=== PATIENT | male | born 1950 | race Caucasian/White ===

== ENCOUNTER 2020-11-16 16:46 | Emergency (ER) | payer MEDICARE, BC ==
[2020-11-16 17:01] VITALS: BP 167/78; PULSE 81
--- NOTE | 2020-11-16 17:15 | EDM.PDOC ---
ED HPI GENERAL MEDICAL PROBLEM - General Chief Complaint: Neurological Problem Stated Complaint: DIZZY, FALLING OVER TO ONE SIDE Time Seen by Provider: 11/16/20 17:05 Source of Information: Reports: Patient, Family History Limitations: Reports: No Limitations - History of Present Illness INITIAL COMMENTS - FREE TEXT/NARRATIVE: 70-year-old male who has had a problems with intermittent dizziness for the last few years, but in the last 2 months it has been more persistent mixed with a sensation of leaning towards the right side. He did have Covid 3 months ago and had a headache with that but recovered. He had a check in the clinic a month ago with numerous labs, all were reassuring. He was in the clinic again today, and his primary provider is setting up an MRI of his head. After he got home however, he felt the symptoms got fairly suddenly worse so came in to be checked. His only symptom is dizziness and a sensation of leaning or falling towards the right, he has no headache, no visual complaints, no weakness, no paresthesias, no aphasia or dysarthria or any other neurological complaints. He has no palpitations although the monitor does show fairly frequent PVCs. No shortness of breath, nausea or vomiting. Onset: Unknown/Unsure Duration: Chronic Associated Symptoms: Reports: Weakness (Denies any muscular weakness). Denies: Confusion, Chest Pain, Cough - Related Data Allergies Allergy/AdvReac Type Severity Reaction Status Date / Time No Known Allergies Allergy Verified 11/16/20 16:50 Home Meds: Home Meds Latanoprost 1 drop TOP DAILY 08/29/14 [History] Metoprolol Tartrate [Lopressor] 12.5 mg PO DAILY 08/29/14 [History] Aspirin [Halfprin] 81 mg PO DAILY 02/13/20 [History] Brimonidine Tartrate/Timolol [Combigan Eye Drops] 1 drop EYEBOTH BID 02/13/20 [History] Clotrimazole/Betamethasone Dip [Lotrisone Cream] 1 applic TP BID 02/13/20 [History] Meloxicam [Mobic] 7.5 mg PO BIDMEALS 02/13/20 [History] Multivit-Min/FA/Lycopen/Lutein [Centrum Silver Tablet] 1 each PO DAILY 02/13/20 [History] Vardenafil HCl [Levitra] 20 mg PO ASDIRECTED 02/13/20 [History] atorvaSTATin Calcium [Atorvastatin Calcium] 40 mg PO DAILY 02/13/20 [History] buPROPion [Wellbutrin] 100 mg PO BID 02/13/20 [History] Trimix 5 ml SQ ASDIRECTED PRN 11/16/20 [History] Past Medical History HEENT History: Reports: Impaired Vision Cardiovascular History: Reports: Hypertension, Stents Respiratory History: Reports: Sleep Apnea Other Respiratory History: cpap Musculoskeletal History: Reports: Arthritis Endocrine/Metabolic History: Reports: Obesity/BMI 30+ - Infectious Disease History Infectious Disease History: Reports: Chicken Pox, Measles - Past Surgical History Head Surgeries/Procedures: Reports: None HEENT Surgical History: Reports: Cataract Surgery Cardiovascular Surgical History: Reports: Coronary Artery Stent Respiratory Surgical History: Reports: None Endocrine Surgical History: Reports: None Musculoskeletal Surgical History: Reports: Carpal Tunnel Dermatological Surgical History: Reports: None Social & Family History - Tobacco Use Tobacco Use Status *Q: Never Tobacco User Second Hand Smoke Exposure: No - Caffeine Use Caffeine Use: Reports: Coffee - Recreational Drug Use Recreational Drug Use: No ED ROS GENERAL - Review of Systems Review Of Systems: See Below Constitutional: Denies: Fever, Chills HEENT: Denies: Vision Change Respiratory: Denies: Shortness of Breath, Cough Cardiovascular: Denies: Chest Pain, Palpitations GI/Abdominal: Denies: Abdominal Pain, Diarrhea, Nausea, Vomiting : Reports: No Symptoms Skin: Reports: No Symptoms Neurological: Reports: Dizziness (Complains of intermittent dizziness but no vertigo), Headache (Had a bad headache during Covid, none currently), Gait Disturbance (Difficulty walking because he is "leaning to the right".) Psychiatric: Denies: Anxiety ED EXAM, NEURO - Physical Exam Exam: See Below Exam Limited By: No Limitations General Appearance: Alert, No Apparent Distress Eye Exam: Bilateral Eye: EOMI, Normal Inspection, Other (Visual gonzalez are full and there is no nystagmus either direction) Ears: Normal TMs (A small amount of wax in the right canal but TMs are normal) Nose: Normal Inspection Head Exam: Atraumatic Neck: Supple. No: Carotid Bruit, Lymphadenopathy (R), Lymphadenopathy (L) Respiratory/Chest: No Respiratory Distress, Lungs Clear Cardiovascular: Regular Rate, Rhythm, Extra Beats Neurological: Alert, Normal Mood/Affect, No Motor/Sensory Deficits, Oriented x 3, Other (Romberg is negative, no pronator drift) Extremities: No: Pedal Edema Psychiatric: Normal Affect, Normal Mood Skin Exam: Warm, Dry Course - Vital Signs Last Recorded V/S: Last Vital Signs Temp 98.1 F 11/16/20 16:56 Pulse 81 11/16/20 16:56 Resp 17 11/16/20 16:56 BP 167/78 H 11/16/20 16:56 Pulse Ox 95 11/16/20 16:56 - Re-Assessments/Exams Free Text/Narrative Re-Assessment/Exam: 11/16/20 17:39 CT of the head was obtained. 11/16/20 17:49 FINDINGS: CSF spaces: Within normal limits for age. Brain parenchyma: The burgess-white differentiation is normal. No sign of mass, hemorrhage, or midline shift. Skull base and calvarium: Left maxillary sinus mucosal thickening. The visualized orbits are grossly unremarkable. No skull fractures. IMPRESSION: Unremarkable noncontrast head CT. Above findings were discussed with the patient. He will be given some meclizine to try until his MRI can be accomplished. He should return sooner if worsening such as headache or marked increase in symptoms. If his MRI is normal as well, a course of antibiotics for sinusitis may be reasonable. He is going to discuss that with Dr. Dodd. Departure - Departure Time of Disposition: 17:49 Disposition: Home, Self-Care 01 Clinical Impression: Dizziness - Discharge Information Instructions: Dizziness, [id number] Referrals: Dav Dodd MD [Primary Care Provider] - Forms: ED Department Discharge Care Plan Goals: Try meclizine as prescribed for persistent dizziness, continue activity as tolerated and recheck with Dr. Dodd after your MRI is complete. Return anytime if significant worsening or other concerns. Sepsis Event Note (ED) - Evaluation Sepsis Screening Result: No Definite Risk
--- NOTE | 2020-11-16 17:43 | CRLCT ---
INDICATION: Dizziness, falls TECHNIQUE: CT head without contrast. COMPARISON: None FINDINGS: CSF spaces: Within normal limits for age. Brain parenchyma: The burgess-white differentiation is normal. No sign of mass, hemorrhage, or midline shift. Skull base and calvarium: Left maxillary sinus mucosal thickening. The visualized orbits are grossly unremarkable. No skull fractures. IMPRESSION: Unremarkable noncontrast head CT. Dictated by Adrian Hernández MD @ 11/16/2020 5:41:46 PM Please note that all CT scans at this facility use dose modulation, iterative reconstruction, and/or weight-based dosing when appropriate to reduce radiation dose to as low as reasonably achievable. Dictated by: Adrian Hernández MD @ 11/16/2020 17:41:54 (Electronically Signed)
== END 2020-11-16 18:16 | disposition home or self-care (01) ==
LOC: JP.ED 16:46
DX: R42 Dizziness and giddiness (principal); I10 Essential (primary) hypertension; M19.90 Unspecified osteoarthritis, unspecified site; E66.9 Obesity, unspecified; Z68.41 Body mass index [BMI] 40.0-44.9, adult; Z86.16 Personal history of COVID-19; Z79.82 Long term (current) use of aspirin; Z79.899 Other long term (current) drug therapy
CPT/HCPCS: 70450; 99283; 99284-25

== ENCOUNTER 2021-08-06 11:55 | Emergency (ER) | payer MEDICARE, BC ==
[2021-08-06 12:11] VITALS: BP 141/77; PULSE 69
--- NOTE | 2021-08-06 12:41 | EDM.PDOC ---
ED HPI GENERAL MEDICAL PROBLEM - General Chief Complaint: General Stated Complaint: PASSED OUT Time Seen by Provider: 08/06/21 12:20 Source of Information: Reports: Patient, Family, Old Records, RN History Limitations: Reports: No Limitations - History of Present Illness INITIAL COMMENTS - FREE TEXT/NARRATIVE: 71 yo male was at [facility] this AM to fill an Rx given to him at the local [facility] yesterday and while there remembers feeling a little light- headed and then awakening on the floor with a slight amt of L occipital tenderness. He was able to get up under his own power for EMS and walk out to the ambulance. He came then by car to the ER with his . He denies any recent diarrhea, nausea, fever, black stools. No pHx of seizures. Did eat today. Has no current nausea, BLAS, or neck pain. Onset: Today, Sudden Onset Date: 08/06/21 Duration: Minutes: (1-2) Location: Reports: Head Quality: Reports: Other (no pain prior to his fall) Severity: Mild Improves with: Reports: Other (time) Worsens with: Reports: Other (unsure) Context: Reports: Other (See HPI) Associated Symptoms: Reports: No Other Symptoms Treatments CHIROPRACTOR ASSISTANT: Reports: Other (see below) (none) - Related Data Allergies Allergy/AdvReac Type Severity Reaction Status Date / Time No Known Allergies Allergy Verified 08/06/21 12:11 Home Meds: Home Meds Latanoprost 1 drop TOP DAILY 08/29/14 [History] Metoprolol Tartrate [Lopressor] 12.5 mg PO DAILY 08/29/14 [History] Aspirin [Halfprin] 81 mg PO DAILY 02/13/20 [History] Brimonidine Tartrate/Timolol [Combigan Eye Drops] 1 drop EYEBOTH BID 02/13/20 [History] Clotrimazole/Betamethasone Dip [Lotrisone Cream] 1 applic TP BID 02/13/20 [History] Meloxicam [Mobic] 7.5 mg PO BIDMEALS 02/13/20 [History] Multivit-Min/FA/Lycopen/Lutein [Centrum Silver Tablet] 1 each PO DAILY 02/13/20 [History] atorvaSTATin Calcium [Atorvastatin Calcium] 40 mg PO DAILY 02/13/20 [History] LORazepam [Ativan] 0.5 mg PO BID 08/06/21 [History] Naproxen [Naprosyn] 500 mg PO BID 08/06/21 [History] Sertraline [Zoloft] 50 mg PO DAILY 08/06/21 [History] buPROPion [Wellbutrin SR] 150 mg PO DAILY 08/06/21 [History] Past Medical History HEENT History: Reports: Cataract, Impaired Vision Cardiovascular History: Reports: Hypertension, Stents Respiratory History: Reports: Sleep Apnea Other Respiratory History: cpap Musculoskeletal History: Reports: Arthritis Neurological History: Reports: Neuropathy, Peripheral Psychiatric History: Reports: Anxiety Endocrine/Metabolic History: Reports: Obesity/BMI 30+ - Infectious Disease History Infectious Disease History: Reports: Chicken Pox, Measles, Novel Coronavirus - Past Surgical History Head Surgeries/Procedures: Reports: None HEENT Surgical History: Reports: Cataract Surgery Cardiovascular Surgical History: Reports: Coronary Artery Stent Respiratory Surgical History: Reports: None Endocrine Surgical History: Reports: None Musculoskeletal Surgical History: Reports: Carpal Tunnel Dermatological Surgical History: Reports: None Social & Family History - Tobacco Use Tobacco Use Status *Q: Never Tobacco User - Caffeine Use Caffeine Use: Reports: Coffee ED ROS GENERAL - Review of Systems Review Of Systems: See Below Constitutional: Reports: No Symptoms HEENT: Reports: No Symptoms Respiratory: Reports: No Symptoms Cardiovascular: Reports: Lightheadedness (before he passed out), Syncope Endocrine: Reports: No Symptoms GI/Abdominal: Reports: No Symptoms. Denies: Black Stool, Bloody Stool, Diarrhea, Hematemesis, Hematochezia, Nausea, Vomiting : Reports: No Symptoms Musculoskeletal: Reports: No Symptoms. Denies: Neck Pain Skin: Reports: No Symptoms Neurological: Denies: Headache Psychiatric: Reports: No Symptoms ED EXAM, GENERAL - Physical Exam Exam: See Below Exam Limited By: No Limitations General Appearance: Alert, WD/WN, No Apparent Distress Eye Exam: Bilateral Eye: Normal Inspection Ears: Normal External Exam, Normal Canal, Hearing Grossly Normal, Normal TMs, Other (hearing aids) Ear Exam: Bilateral Ear: Auricle Normal, Canal Normal, TM normal Nose: Normal Inspection, No Blood Throat/Mouth: Normal Inspection, Normal Lips, Normal Oropharynx, Normal Voice, No Airway Compromise Head: Atraumatic, Normocephalic Neck: Normal Inspection Respiratory/Chest: No Respiratory Distress, Lungs Clear, Normal Breath Sounds, No Accessory Muscle Use Cardiovascular: Regular Rate, Rhythm, No Edema. No: Bradycardia, Tachycardia, Irregularly Irregular GI/Abdominal: Normal Bowel Sounds, Soft, Non-Tender, No Distention Back Exam: Normal Inspection. No: CVA Tenderness (R), CVA Tenderness (L) Extremities: Normal Inspection, Normal Range of Motion, Non-Tender, No Pedal Edema Neurological: Alert, Oriented, CN II-XII Intact, Normal Cognition, No Motor/Sensory Deficits Psychiatric: Normal Affect, Normal Mood Skin Exam: Warm, Dry, Intact, Normal Color, No Rash Course - Vital Signs Last Recorded V/S: Last Vital Signs Temp 36.6 C 08/06/21 12:13 Pulse 69 08/06/21 12:13 Resp 16 08/06/21 12:13 BP 141/77 H 08/06/21 12:13 Pulse Ox 96 08/06/21 12:13 Orthostatic Blood Pressure [ 128/67 Standing] Orthostatic Blood Pressure [ 138/77 Sitting] Orthostatic Blood Pressure [ 128/74 Supine] - Orders/Labs/Meds Orders: Active Orders 24 hr Category Date Time Status Cardiac Monitoring [RC] .As Directed Care 08/06/21 12:01 Active Orthostatic Vital Signs [RC] ASDIRECTED Care 08/06/21 12:02 Active Departure - Departure Time of Disposition: 12:46 Disposition: Home, Self-Care 01 Condition: Good Clinical Impression: Vasovagal syncope, Contusion of scalp - Discharge Information *PRESCRIPTION DRUG MONITORING PROGRAM REVIEWED*: Not Applicable *COPY OF PRESCRIPTION DRUG MONITORING REPORT IN PATIENT TEVIN: Not Applicable Instructions: Syncope, [id number] Referrals: Dav Dodd MD [Primary Care Provider] - Additional Instructions: Drink enough fluids so that your urine is light yellow in color. If you start to feel light-headed sit down immediately to avoid passing out and potentially causing serious head injury. Recheck as needed. Sepsis Event Note (ED) - Evaluation Sepsis Screening Result: No Definite Risk - Focused Exam Vital Signs: Vital Signs Temp Pulse Resp BP Pulse Ox 08/06/21 12:13 36.6 C 69 16 141/77 H 96 08/06/21 12:10 36.6 C 69 16 141/77 H 96 - My Orders Last 24 Hours: My Active Orders 08/06/21 12:01 Cardiac Monitoring [RC] .As Directed 08/06/21 12:02 Orthostatic Vital Signs [RC] ASDIRECTED - Assessment/Plan Last 24 Hours: My Active Orders 08/06/21 12:01 Cardiac Monitoring [RC] .As Directed 08/06/21 12:02 Orthostatic Vital Signs [RC] ASDIRECTED
== END 2021-08-06 13:11 | disposition home or self-care (01) ==
LOC: JP.ED 11:55
DX: R55 Syncope and collapse (principal); S00.03XA Contusion of scalp, initial encounter; I10 Essential (primary) hypertension; M19.90 Unspecified osteoarthritis, unspecified site; E66.9 Obesity, unspecified; Z68.38 Body mass index [BMI] 38.0-38.9, adult; Z86.16 Personal history of COVID-19; Z79.82 Long term (current) use of aspirin; Z79.899 Other long term (current) drug therapy; X58.XXXA Exposure to other specified factors, initial encounter; Y92.512 Supermarket, store or market as the place of occurrence of the external cause
CPT/HCPCS: 99283

== ENCOUNTER 2024-04-08 15:33 | Emergency (ER) | payer MEDICARE, BC ==
[2024-04-08] MEDS ORDERED: Sodium Chloride 0.9% 10 ML Syringe FLUSH PRN (15:57)
[2024-04-08] MEDS ORDERED: Propofol 200 MG/20 ML SDV ONE (16:47)
[2024-04-08] MEDS ORDERED: Propofol 200 MG/20 ML SDV IVPUSH ONE (16:48)
[2024-04-08 17:38] VITALS: BP 144/67; PULSE 53
[2024-04-08] MEDS: HYDROmorphone 1 MG/ML Syringe IVPUSH ONE (18:24)
== END 2024-04-08 18:18 | disposition home or self-care (01) ==
LOC: JP.ED 15:33
DX: S43.004A Unspecified dislocation of right shoulder joint, initial encounter (principal); I10 Essential (primary) hypertension; E66.9 Obesity, unspecified; Z79.82 Long term (current) use of aspirin; Z79.899 Other long term (current) drug therapy; Z86.16 Personal history of COVID-19; Z68.41 Body mass index [BMI] 40.0-44.9, adult; X50.1XXA Overexertion from prolonged static or awkward postures, initial encounter
CPT/HCPCS: 23650; 73020; 73030; 99283; J2704

== ENCOUNTER 2024-04-19 11:49 | Emergency (ER) | payer MEDICARE, BC ==
[2024-04-19 13:41] VITALS: BP 158/68; PULSE 46
== END 2024-04-19 14:41 | disposition home or self-care (01) ==
LOC: JP.ED 11:49
DX: G60.9 Hereditary and idiopathic neuropathy, unspecified (principal); I10 Essential (primary) hypertension; I25.10 Atherosclerotic heart disease of native coronary artery without angina pectoris; E78.00 Pure hypercholesterolemia, unspecified; E66.9 Obesity, unspecified; Z95.5 Presence of coronary angioplasty implant and graft; Z79.899 Other long term (current) drug therapy; Z79.82 Long term (current) use of aspirin
CPT/HCPCS: 99283

== ENCOUNTER 2024-05-21 15:32 | Emergency (ER) | payer MEDICARE, BC ==
[2024-05-21] MEDS: HYDROmorphone 1 MG/ML Syringe IVPUSH ONE (16:01)
[2024-05-21] MEDS ORDERED: Propofol 200 MG/20 ML SDV ONE (16:30)
[2024-05-21 17:07] VITALS: BP 167/65; PULSE 74
== END 2024-05-21 17:29 | disposition home or self-care (01) ==
LOC: JP.ED 15:32
DX: M24.411 Recurrent dislocation, right shoulder (principal); I10 Essential (primary) hypertension; E78.00 Pure hypercholesterolemia, unspecified; I25.10 Atherosclerotic heart disease of native coronary artery without angina pectoris; E66.9 Obesity, unspecified; Z68.41 Body mass index [BMI] 40.0-44.9, adult; Z86.16 Personal history of COVID-19; Z79.899 Other long term (current) drug therapy; Z79.82 Long term (current) use of aspirin
CPT/HCPCS: 23650; 73030; 96374; 99284; J1170; J2704; 99156

== ENCOUNTER 2024-05-22 19:39 | Inpatient (IN) | payer MEDICARE, BC ==
[2024-05-22 20:42] LABS: BASOPHILS ABSOLUTE AUTO 0.02 K/uL (0.00-0.10); BASOPHILS PERCENT AUTO 0.2 % (0.1-1.3); EOSINOPHILS ABSOLUTE AUTO 0.05 K/uL (0.00-0.40); EOSINOPHILS PERCENT AUTO 0.6 % (0.0-5.4); HEMATOCRIT 35.2 % (38.4-49.7); HEMOGLOBIN 12.3 g/dL (12.9-16.9); IMMATURE GRAN ABSOLUTE AUTO 0.03 K/uL (0.00-0.23); IMMATURE GRAN PERCENT AUTO 0.4 % (0.0-0.7); LYMPHOCYTES ABSOLUTE AUTO 0.51 K/uL (0.8-3.3); LYMPHOCYTES PERCENT AUTO 6.4 % (11.4-47.7); MEAN CORPUSCULAR HEMOGLOBIN 31.9 pg (31.6-35.5); MEAN CORPUSCULAR HGB CONC 34.9 g/dL (31.6-35.5); MEAN CORPUSCULAR VOLUME 91.4 fL (81.4-99.0); MONOCYTES ABSOLUTE AUTO 0.95 K/uL (0.20-0.90); MONOCYTES PERCENT AUTO 11.8 % (3.3-12.6); NEUTROPHILS ABSOLUTE AUTO 6.47 K/uL (1.0-7.6); NEUTROPHILS PERCENT AUTO 80.6 % (40.0-78.1); PLATELET COUNT,PLT 132 K/uL (130-375); RED BLOOD CELL COUNT 3.85 M/uL (4.14-5.76)
[2024-05-22 21:01] LABS: ALANINE AMINOTRANSFERASE,ALT 42 U/L (12-78); ALBUMIN 3.2 g/dL (3.4-5.0); ALKALINE PHOSPHATASE 87 U/L (46-116); ASPARTATE AMNIOTRANSFERASE,AST 59 U/L (15-37); BLOOD UREA NITROGEN,BUN 13 mg/dL (7-18); CALCIUM 8.6 mg/dL (8.5-10.1); CARBON DIOXIDE,CO2 26 mmol/L (21-32); CHLORIDE,CL 102 mmol/L (100-108); CREATININE 0.9 mg/dL (0.8-1.3); EST CRCL DRUG DOSING (CG) 81.19 mL/min; ESTIMATED GFR 89 mL/min (>60); GLUCOSE RANDOM 110 mg/dL (74-106); PROTEIN TOTAL,TP 6.4 g/dL (6.4-8.2); SODIUM,NA 135 mmol/L (140-148)
[2024-05-22] MEDS ORDERED: Loperamide 2 MG Cap PO PRN (22:22)
[2024-05-22] MEDS ORDERED: Melatonin 3 MG Tab PO PRN (22:22)
[2024-05-22] MEDS ORDERED: Ondansetron 4 MG Tab.DIS PO PRN (22:22)
[2024-05-22] MEDS ORDERED: Ondansetron 4 MG/2 ML SDV IV PRN (22:22)
[2024-05-22] MEDS ORDERED: Sodium Chloride 0.9% 1,000 ML IV SCH (22:22)
[2024-05-22] MEDS ORDERED: Benzonatate 100 MG Cap PO PRN (22:22)
[2024-05-22] MEDS: Acetaminophen 325 MG Tab PO SCH (22:49)
[2024-05-22] MEDS: Metoprolol Tartrate 25 MG Tab PO ONE (22:50)
[2024-05-22] MEDS: LORazepam 0.5 MG Tab PO ONE (22:50)
[2024-05-23 05:26] LABS: HEMATOCRIT 33.7 % (38.4-49.7); HEMOGLOBIN 11.7 g/dL (12.9-16.9); MEAN CORPUSCULAR HEMOGLOBIN 31.9 pg (31.6-35.5); MEAN CORPUSCULAR HGB CONC 34.7 g/dL (31.6-35.5); MEAN CORPUSCULAR VOLUME 91.8 fL (81.4-99.0); RED BLOOD CELL COUNT 3.67 M/uL (4.14-5.76); WHITE BLOOD CELL COUNT,WBC 6.5 K/uL (3.2-11.0)
[2024-05-23 05:43] LABS: CALCIUM 8.2 mg/dL (8.5-10.1); CREATININE 0.9 mg/dL (0.8-1.3); EST CRCL DRUG DOSING (CG) 81.19 mL/min; POTASSIUM,K 3.6 mmol/L (3.6-5.2)
[2024-05-23 05:46] LABS: ANION GAP 12.6 mmol/L (5.0-14.0)
[2024-05-23] MEDS: LORazepam 0.5 MG Tab PO SCH (08:17)
[2024-05-23] MEDS: Meloxicam 7.5 MG Tab PO SCH (17:16)
[2024-05-23] MEDS: prednisoLONE Acetate 1% Ophth Susp 5 ML Bottle EYELF SCH (17:16)
[2024-05-23] MEDS: Brimonidine 0.2% Ophth Soln 5 ML Bottle EYERT SCH (22:00)
[2024-05-23] MEDS: Latanoprost 0.005% Ophth Soln 2.5 ML Bottle EYEBOTH SCH (22:02)
[2024-05-23] MEDS: Metoprolol Tartrate 25 MG Tab PO SCH (22:05)
[2024-05-24 11:29] VITALS: BP 130/62; PULSE 63
[2024-05-24] MEDS ORDERED: atorvaSTATin 20 MG Tab PO SCH (16:00)
[2024-05-24] MEDS ORDERED: Aspirin 81 MG Tab.EC PO SCH (16:00)
== END 2024-05-24 12:20 | disposition home or self-care (01) | DRG 178 ==
LOC: JP.ED 19:39 → JP.ICU 21:39 → OBSVTOIN 05-23 13:42
PROVIDERS: ADMIT Registered Nurse; ATTEND Internal Medicine
DX: U07.1 COVID-19 (principal); Z68.41 Body mass index [BMI] 40.0-44.9, adult; G62.9 Polyneuropathy, unspecified; H54.7 Unspecified visual loss; I25.10 Atherosclerotic heart disease of native coronary artery without angina pectoris; E78.00 Pure hypercholesterolemia, unspecified; I10 Essential (primary) hypertension; Z86.16 Personal history of COVID-19; F41.9 Anxiety disorder, unspecified; F32.A Depression, unspecified; Z95.1 Presence of aortocoronary bypass graft; E66.9 Obesity, unspecified; G60.9 Hereditary and idiopathic neuropathy, unspecified; G47.33 Obstructive sleep apnea (adult) (pediatric); M24.411 Recurrent dislocation, right shoulder; Z79.82 Long term (current) use of aspirin; Z79.899 Other long term (current) drug therapy; Z95.5 Presence of coronary angioplasty implant and graft; Z85.46 Personal history of malignant neoplasm of prostate; Z98.49 Cataract extraction status, unspecified eye; Z98.890 Other specified postprocedural states
CPT/HCPCS: 36415 ×2; 70450; 80048; 80053; 85025; 85027; 97161; 99221; 99285; A9270 ×5; U0002; 97110-GP; 97165-GO; 97535-GO; 97535-GP; 99231; 99238; G0378

== ENCOUNTER 2025-07-12 18:40 | Emergency (ER) | payer MEDICARE, BC ==
[2025-07-12 19:30] LABS: BASOPHILS ABSOLUTE AUTO 0.04 K/uL (0.00-0.10); BASOPHILS PERCENT AUTO 0.7 % (0.1-1.3); EOSINOPHILS ABSOLUTE AUTO 0.17 K/uL (0.00-0.40); EOSINOPHILS PERCENT AUTO 2.8 % (0.0-5.4); IMMATURE GRAN PERCENT AUTO 0.3 % (0.0-0.7); LYMPHOCYTES ABSOLUTE AUTO 0.67 K/uL (0.8-3.3); LYMPHOCYTES PERCENT AUTO 11.1 % (11.4-47.7); MONOCYTES ABSOLUTE AUTO 0.78 K/uL (0.20-0.90); MONOCYTES PERCENT AUTO 12.9 % (3.3-12.6); NEUTROPHILS ABSOLUTE AUTO 4.38 K/uL (1.0-7.6); NEUTROPHILS PERCENT AUTO 72.2 % (40.0-78.1); PLATELET COUNT,PLT 131 K/uL (130-375); RED BLOOD CELL COUNT 4.02 M/uL (4.14-5.76); WHITE BLOOD CELL COUNT,WBC 6.1 K/uL (3.2-11.0)
[2025-07-12 19:31] LABS: IMMATURE GRAN ABSOLUTE AUTO 0.02 K/uL (0.00-0.23)
[2025-07-12 19:42] LABS: BLOOD UREA NITROGEN,BUN 17.0 mg/dL (7-18); CARBON DIOXIDE,CO2 26.0 mmol/L (21-32); CHLORIDE,CL 105.0 mmol/L (100-108); CREATININE 0.9 mg/dL (0.8-1.3); EST CRCL DRUG DOSING (CG) 79.92 mL/min; ESTIMATED GFR 88.0 mL/min (>60); GLUCOSE RANDOM 102.0 mg/dL (74-106); POTASSIUM,K 4.3 mmol/L (3.6-5.2); SODIUM,NA 141.0 mmol/L (140-148)
[2025-07-12 21:08] VITALS: BP 153/73; PULSE 71
== END 2025-07-12 21:14 | disposition home or self-care (01) ==
LOC: JP.ED 18:40
DX: S00.01XA Abrasion of scalp, initial encounter (principal); S09.90XA Unspecified injury of head, initial encounter; I10 Essential (primary) hypertension; E78.00 Pure hypercholesterolemia, unspecified; E66.9 Obesity, unspecified; Z79.82 Long term (current) use of aspirin; Z79.899 Other long term (current) drug therapy; Z86.16 Personal history of COVID-19; Z68.39 Body mass index [BMI] 39.0-39.9, adult; W01.198A Fall on same level from slipping, tripping and stumbling with subsequent striking against other object, initial encounter
CPT/HCPCS: 36415; 70450; 72125; 76377; 80048; 85025; 99284

== ENCOUNTER 2025-07-14 14:02 | Inpatient (IN) | payer MEDICARE, BC ==
[2025-07-14] MEDS ORDERED: Sodium Chloride 0.9% 10 ML Syringe FLUSH PRN (15:03)
[2025-07-14 15:20] LABS: BASOPHILS PERCENT AUTO 0.3 % (0.1-1.3); EOSINOPHILS ABSOLUTE AUTO 0.14 K/uL (0.00-0.40); EOSINOPHILS PERCENT AUTO 2.4 % (0.0-5.4); IMMATURE GRAN PERCENT AUTO 0.3 % (0.0-0.7); LYMPHOCYTES ABSOLUTE AUTO 1.02 K/uL (0.8-3.3); LYMPHOCYTES PERCENT AUTO 17.2 % (11.4-47.7); MONOCYTES ABSOLUTE AUTO 0.95 K/uL (0.20-0.90); MONOCYTES PERCENT AUTO 16.0 % (3.3-12.6); NEUTROPHILS ABSOLUTE AUTO 3.78 K/uL (1.0-7.6); NEUTROPHILS PERCENT AUTO 63.8 % (40.0-78.1); PLATELET COUNT,PLT 129 K/uL (130-375); RED BLOOD CELL COUNT 4.02 M/uL (4.14-5.76); WHITE BLOOD CELL COUNT,WBC 5.9 K/uL (3.2-11.0)
[2025-07-14 15:21] LABS: BASOPHILS ABSOLUTE AUTO 0.02 K/uL (0.00-0.10); IMMATURE GRAN ABSOLUTE AUTO 0.02 K/uL (0.00-0.23)
[2025-07-14 15:32] LABS: APPEARANCE,URINE SLIGHTLY CLOUDY (CLEAR); GLUCOSE,URINE NEGATIVE (NEGATIVE); OCCULT BLOOD,URINE NEGATIVE (NEGATIVE)
[2025-07-14 15:38] LABS: A/G RATIO 1.0 (1.2-2.2); ALANINE AMINOTRANSFERASE,ALT 29 U/L (12-78); ASPARTATE AMNIOTRANSFERASE,AST 46 U/L (15-37); BILIRUBIN TOTAL 0.7 mg/dL (0.2-1.0); BLOOD UREA NITROGEN,BUN 15 mg/dL (7-18); CARBON DIOXIDE,CO2 28 mmol/L (21-32); CHLORIDE,CL 105 mmol/L (100-108); CREATINE KINASE,CK 792 U/L (39-308); CREATININE 0.9 mg/dL (0.8-1.3); EST CRCL DRUG DOSING (CG) 79.92 mL/min; ESTIMATED GFR 88 mL/min (>60); GLUCOSE RANDOM 98 mg/dL (74-106); POTASSIUM,K 4.2 mmol/L (3.6-5.2); PROTEIN TOTAL,TP 6.7 g/dL (6.4-8.2); SODIUM,NA 141 mmol/L (140-148)
[2025-07-14] MEDS ORDERED: Sennosides/Docusate Sodium 50-8.6 MG Tab PO PRN (17:40)
[2025-07-14] MEDS ORDERED: Ondansetron 4 MG Tab.DIS PO PRN (17:40)
[2025-07-14] MEDS ORDERED: Magnesium Hydroxide 400 MG/5 ML Susp 30 ML Cup PO PRN (17:40)
[2025-07-14] MEDS ORDERED: Ondansetron 4 MG/2 ML SDV IV PRN (17:40)
[2025-07-15 06:01] LABS: PLATELET COUNT,PLT 119.0 K/uL (130-375); RED BLOOD CELL COUNT 3.66 M/uL (4.14-5.76); WHITE BLOOD CELL COUNT,WBC 6.9 K/uL (3.2-11.0)
[2025-07-15 06:20] LABS: BLOOD UREA NITROGEN,BUN 13.0 mg/dL (7-18); CARBON DIOXIDE,CO2 26.0 mmol/L (21-32); CHLORIDE,CL 107.0 mmol/L (100-108); CREATINE KINASE,CK 486.0 U/L (39-308); CREATININE 1.0 mg/dL (0.8-1.3); EST CRCL DRUG DOSING (CG) 71.93 mL/min; ESTIMATED GFR 78.0 mL/min (>60); GLUCOSE RANDOM 103.0 mg/dL (74-106); POTASSIUM,K 3.9 mmol/L (3.6-5.2); SODIUM,NA 140.0 mmol/L (140-148)
[2025-07-21 10:53] VITALS: BP 137/57; PULSE 73
== END 2025-07-21 11:30 | DRG 566 ==
LOC: JP.ED 14:02 → JP.MS 16:53
PROVIDERS: ADMIT Internal Medicine; ATTEND Hospitalist
DX: T79.6XXA Traumatic ischemia of muscle, initial encounter (principal); B02.9 Zoster without complications; R53.1 Weakness; H26.9 Unspecified cataract; H91.90 Unspecified hearing loss, unspecified ear; H54.7 Unspecified visual loss; E78.00 Pure hypercholesterolemia, unspecified; I10 Essential (primary) hypertension; I25.10 Atherosclerotic heart disease of native coronary artery without angina pectoris; G47.30 Sleep apnea, unspecified; N40.0 Benign prostatic hyperplasia without lower urinary tract symptoms; G62.9 Polyneuropathy, unspecified; F41.9 Anxiety disorder, unspecified; F32.A Depression, unspecified; E66.9 Obesity, unspecified; Z85.46 Personal history of malignant neoplasm of prostate; Z86.16 Personal history of COVID-19; Z79.899 Other long term (current) drug therapy; Z79.82 Long term (current) use of aspirin; Z95.5 Presence of coronary angioplasty implant and graft; Z98.49 Cataract extraction status, unspecified eye; Z98.890 Other specified postprocedural states; Z68.38 Body mass index [BMI] 38.0-38.9, adult
CPT/HCPCS: 36415; 71045 ×2; 80053; 81003; 82550; 83605; 85025; 96360; 99285; J7030; 80048; 85027; 97110-GP; 97161-GP; 97530-GP; 99222; 99231; 99232; 99238; A9270-GY; C1758